=== PATIENT | male | born 1980 | race Caucasian/White ===

== ENCOUNTER → 2017-05-04 | Outpatient (CLI) | payer BC ==
[~2017-05-04] VITALS: Ht 172.7 cm; Wt 108.6 kg
[2017-05-04 14:32] VITALS: BP 137/88; PULSE 85; Ht 172.7 cm; Wt 108.6 kg
== END | disposition home or self-care (01) ==
LOC: C.NEUR 14:20
PROVIDERS: ATTEND Internal Medicine Pulmonary Disease
DX: G47.30 Sleep apnea, unspecified (principal)